=== PATIENT | male | born 1985 | race Caucasian/White ===

== ENCOUNTER 2020-09-21 18:46 | Inpatient (IN) | payer OTHER ==
[~2020-09-21] VITALS: Ht 170.2 cm; Wt 86.2 kg
[2020-09-21 19:47] LABS: BASOPHILS 0.3 % (0-2); EOSINOPHILS 0.2 % (0-7); HEMATOCRIT 44.1 % (42.0-54.0); HEMOGLOBIN 14.8 g/dL (13.5-17.5); LYMPHOCYTES 10.9 % (15-50); MCH 28.2 pg (26.0-34.0); MCHC 33.6 g/dL (31.0-37.0); MEAN PLATELET VOLUME 7.3 fL (7.4-10.4); MONOCYTES 8.6 % (2-11); PLATELET COUNT 349 10x3/uL (130-400); RBC 5.24 10x6/uL (4.20-6.10); RDW 12.8 % (11.5-14.5); WBC 11.3 10x3/uL (4.8-10.8)
[2020-09-21 19:49] LABS: BILIRUBIN NEGATIVE (NEGATIVE); KETONE LARGE mg/dL (NEGATIVE); NITRITE NEGATIVE (NEGATIVE); UROBILINOGEN NORMAL mg/dL (< 2)
[2020-09-21 19:56] LABS: CALC OSMOLALITY 275 mosm/kg (275-300); CALCIUM 8.8 mg/dL (8.5-10.1); CARBON DIOXIDE 28.3 mmol/L (21.0-32.0); CHLORIDE - SERUM 100 mmol/L (98-107); GLUCOSE 117 mg/dL (74-106); POTASSIUM - SERUM 3.8 mmol/L (3.5-5.1); SODIUM 137 mmol/L (136-145); UREA NITROGEN 15 mg/dL (7-18); eGFR NON AFRICAN AMERICAN > 90 mL/min (90-120)
[2020-09-21 20:02] LABS: ALBUMIN 3.5 g/dL (3.4-5.0); ALKALINE PHOSPHATASE 84 U/L (30-120); ALT (SGPT) 45 U/L (10-68); AMYLASE - SERUM 56 U/L (25-115); BILIRUBIN - TOTAL 0.69 mg/dL (0.2-1.3); LIPASE 75 U/L (73-393); PROTEIN - SERUM 8.1 g/dL (6.4-8.2)
--- NOTE | 2020-09-21 22:14 | NUR ---
BLOODD CULTURES DRAWN AND SENT TO LAB
[2020-09-22] VITALS (12 sets, daily range): BP systolic 131–161; BP diastolic 62–98; Ht 170.2 cm; Wt 86.2 kg
[2020-09-22 06:45] LABS: BASOPHILS 0.3 % (0-2); EOSINOPHILS 1.2 % (0-7); HEMATOCRIT 38.7 % (42.0-54.0); HEMOGLOBIN 13.2 g/dL (13.5-17.5); LYMPHOCYTES 14.7 % (15-50); MCH 28.6 pg (26.0-34.0); MCHC 34.2 g/dL (31.0-37.0); MCV 83.6 fL (80.0-100.0); MEAN PLATELET VOLUME 7.6 fL (7.4-10.4); MONOCYTES 12.1 % (2-11); NEUTROPHILS 71.7 % (40-80); RBC 4.62 10x6/uL (4.20-6.10); RDW 12.4 % (11.5-14.5); WBC 10.9 10x3/uL (4.8-10.8)
[2020-09-22 06:50] LABS: PLATELET COUNT 252 10x3/uL (130-400)
[2020-09-22 07:08] LABS: CALC OSMOLALITY 273 mosm/kg (275-300); CALCIUM 8.4 mg/dL (8.5-10.1); CARBON DIOXIDE 27.8 mmol/L (21.0-32.0); CHLORIDE - SERUM 102 mmol/L (98-107); CREATININE - SERUM 0.8 mg/dL (0.6-1.3); GLUCOSE 117 mg/dL (74-106); POTASSIUM - SERUM 3.6 mmol/L (3.5-5.1); SODIUM 136 mmol/L (136-145); UREA NITROGEN 14 mg/dL (7-18); eGFR NON AFRICAN AMERICAN > 90 mL/min (90-120)
[2020-09-22 07:29] LABS: CKMB 0.5 U/L (0.0-3.6); CREATINE KINASE 123 UL (21-232); TROPONIN-I < 0.017 ng/mL (0.000-0.060)
[2020-09-22 07:31] LABS: APTT 39.4 SECONDS (22.8-39.4); INR 1.3 (0.85-1.17)
--- NOTE | 2020-09-22 07:45 | NUR ---
AWAKE AND ALERT. ORIENTED 3. C/O INTENSE ABDOMINAL PAIN AT THIS TIME. WANTS DILAUDID. WILL TALK WITH MD. LUNGS ARE CLEAR BILATERALLY, NO COUGH NOTED. SKIN IS INTACT WITHOUT REDNESS. IV TO LEFT FOREARM IS PATENT WITHOUT REDNESS AT INSERTION SITE.
--- NOTE | 2020-09-22 08:33 | NUR ---
SPOKE WITH YONAS MORA APN RE PAIN MEDS. NEW ORDER RECEIVED. REQUESTED AND GIVEN 0.5 MG DILAUDID SLOW IVP FOR C/O ABDOMINAL BACK PAIN LEVEL 8. WILL MONITOR.
--- NOTE | 2020-09-22 10:02 | NUR ---
OFF UNIT VIA BED FOR PROCEDURE TO IR.
--- NOTE | 2020-09-22 10:55 | NUR ---
RETURNED FROM SURGERY. A/O X3. NO C/O AT THIS TIME. FOOD ORDERED BUT NOT REALLY HUNGRY. WILL MONITOR.
--- NOTE | 2020-09-22 11:30 | NUR ---
RESTING QUIETLY IN BED. VSS. DENIES NEEDS. NO C/O PAIN AT THIS TIME.
--- NOTE | 2020-09-22 16:36 | NUR ---
REQUESTED AND GIVNE 0.5 MG DILAUDID SLOW IVP FOR C/O ABDOMINAL PAIN. WILL MONITOR. REPORTS DIARRHEA X 2. WILL MONITOR. NO CHANGES NOTED.
--- NOTE | 2020-09-22 19:19 | NUR ---
PATIENT RESTING IN BED WITH EYES CLOSED AND NO S/S OF DISTRESS. BED IN LOWEST POSITION AND CALL LIGHT IN REACH.
--- NOTE | 2020-09-22 21:36 | NUR ---
ADMINISTERED MEDS PER ORDERS. PATIENT CLAUDY WELL. ENCOURAGED TO CALL WITH NEEDS.
[2020-09-23 00:08] VITALS: BP 130/66
[2020-09-23 04:37] VITALS: BP 122/65
[2020-09-23 07:12] LABS: ALKALINE PHOSPHATASE 61 U/L (30-120); BILIRUBIN - TOTAL 0.98 mg/dL (0.2-1.3); CALC OSMOLALITY 269 mosm/kg (275-300); CALCIUM 8.2 mg/dL (8.5-10.1); CARBON DIOXIDE 25.9 mmol/L (21.0-32.0); CHLORIDE - SERUM 102 mmol/L (98-107); CREATININE - SERUM 0.9 mg/dL (0.6-1.3); GLUCOSE 129 mg/dL (74-106); MAGNESIUM - SERUM 1.9 mg/dL (1.8-2.4); POTASSIUM - SERUM 3.2 mmol/L (3.5-5.1); PROTEIN - SERUM 6.5 g/dL (6.4-8.2); SODIUM 134 mmol/L (136-145); UREA NITROGEN 12 mg/dL (7-18); eGFR NON AFRICAN AMERICAN > 90 mL/min (90-120)
[2020-09-23 07:14] LABS: BASOPHILS 0.4 % (0-2); EOSINOPHILS 0.6 % (0-7); HEMATOCRIT 36.6 % (42.0-54.0); HEMOGLOBIN 12.6 g/dL (13.5-17.5); LYMPHOCYTES 13.9 % (15-50); MCH 28.5 pg (26.0-34.0); MCHC 34.4 g/dL (31.0-37.0); MEAN PLATELET VOLUME 7.9 fL (7.4-10.4); MONOCYTES 10.5 % (2-11); NEUTROPHILS 74.6 % (40-80); PLATELET COUNT 271 10x3/uL (130-400); RBC 4.41 10x6/uL (4.20-6.10); RDW 12.5 % (11.5-14.5); WBC 7.9 10x3/uL (4.8-10.8)
[2020-09-23 07:15] LABS: ALBUMIN 2.6 g/dL (3.4-5.0); ALT (SGPT) 30 U/L (10-68)
--- NOTE | 2020-09-23 08:13 | NUR ---
AWAKE AND ALERT. ORIENTED X3. NO C/O AT THIS TIME. LUNGS ARE CLEAR BILATERALLY, NO COUGH NOTED. SKIN IS INTACT WITHOUT REDNESS EXCEPT WHERE DRAIN WAS INSERTED TO LEFT SIDE, WHICH HAS DARK BROWN MODEST DRAINAGE. IV TO LEFT FOREARM IS PATENT WITHOUT REDNESS AT INSERTION SITE. UP TO BR PER SELF. NO BM AT THIS TIME. DENIES NEEDS.
[2020-09-23 09:11] VITALS: BP 116/57
--- NOTE | 2020-09-23 09:30 | NUR ---
ATE A FEW BITES OF BREAKFAST WITHOUT NAUSEA OR INCREASED PAIN. TOOK AM MEDS WITHOUT DIFFICULTY. DENIES NEEDS.
--- NOTE | 2020-09-23 10:15 | NUR ---
REQUESTED AND GIVEN 2 HYDROCODONE PO FOR C/O ABDOMINAL PAIN LEVEL 7. WILL MONITOR.
--- NOTE | 2020-09-23 12:30 | NUR ---
ATE ALL OF LUNCH WITHOUT C/O PAIN OR DISCOMFORT. DENIES NEEDS.
--- NOTE | 2020-09-23 16:15 | NUR ---
REQUESTED AND GIVNE 2 HYDROCODONE PO FOR C/O ABDOMINAL PAIN LEVEL 8. WILL MONITOR. NO FURTHER DIARRHEA AT THIS TIME.
[2020-09-23 16:32] VITALS: BP 135/70
--- NOTE | 2020-09-23 18:22 | NUR ---
ATE ALL OF SUPPER WITHOUT C/O DISCOMFORT. NO CHANGES NOTED. DENIES NEEDS.
--- NOTE | 2020-09-23 19:45 | NUR ---
PATIENT RESTING IN BED WITH NO S/S OF DISTRESS AND DENIES NEEDS AT THIS TIME. BED IN LOWEST POSITION AND CALL LIGHT IN REACH. ENCOURAGED PATIENT TO CALL WITH NEEDS.
--- NOTE | 2020-09-23 21:28 | NUR ---
ADMINISTERED MEDS PER ORDERS. PATIENT CLAUDY WELL. ENCOURAGED TO CALL WITH NEEDS.
[2020-09-23 22:06] VITALS: BP 124/52
[2020-09-24 06:47] LABS: BASOPHILS 0.3 % (0-2); HEMATOCRIT 37.3 % (42.0-54.0); HEMOGLOBIN 12.7 g/dL (13.5-17.5); LYMPHOCYTES 16.8 % (15-50); MCH 28.3 pg (26.0-34.0); MCHC 34.1 g/dL (31.0-37.0); MCV 82.9 fL (80.0-100.0); MONOCYTES 9.8 % (2-11); NEUTROPHILS 71.1 % (40-80); PLATELET COUNT 272 10x3/uL (130-400); RBC 4.49 10x6/uL (4.20-6.10); RDW 12.3 % (11.5-14.5); WBC 6.5 10x3/uL (4.8-10.8)
[2020-09-24 07:06] LABS: ALBUMIN 2.6 g/dL (3.4-5.0); ALKALINE PHOSPHATASE 57 U/L (30-120); ALT (SGPT) 29 U/L (10-68); BILIRUBIN - TOTAL 0.36 mg/dL (0.2-1.3); CALC OSMOLALITY 270 mosm/kg (275-300); CHLORIDE - SERUM 103 mmol/L (98-107); CREATININE - SERUM 0.8 mg/dL (0.6-1.3); GLUCOSE 102 mg/dL (74-106); MAGNESIUM - SERUM 1.8 mg/dL (1.8-2.4); SODIUM 136 mmol/L (136-145); UREA NITROGEN 10 mg/dL (7-18); eGFR NON AFRICAN AMERICAN > 90 mL/min (90-120)
[2020-09-24 07:11] LABS: POTASSIUM - SERUM 4.3 mmol/L (3.5-5.1)
--- NOTE | 2020-09-24 07:30 | NUR ---
PT AWAKE AND ALERT. NO NEEDS AT THIS TIME. CL IN REACH. WCTM
[2020-09-24 07:56] VITALS: BP 150/84
[2020-09-24 08:10] VITALS: BP 128/90
--- NOTE | 2020-09-24 11:10 | NUR ---
PT WANTING AND LOOKING FORWARD TO DISCHARGE TODAY. WAITING ON PRIMARY TO COME BY. CL IN REACH. NO NEEDS AT THIS TIME. WCTM
[2020-09-24] MEDS ORDERED: LISINOPRIL10 MG PO (11:35)
[2020-09-24] MEDS ORDERED: ACETAMINOPHEN325 MG PO (11:35)
[2020-09-24] MEDS ORDERED: ZOFRAN ODT4 MG/UDTAB PO (11:36)
[2020-09-24] MEDS ORDERED: LEVAQUIN750 MG PO (11:36)
[2020-09-24] MEDS ORDERED: FLORAJEN DIGES1 EACH PO (11:36)
[2020-09-24] MEDS ORDERED: PROTONIX40 MG PO (11:36)
[2020-09-24] MEDS ORDERED: FLAGYL500 MG PO (11:36)
[2020-09-24] MEDS ORDERED: HYDROCODON-ACE1 EAC7 PO (11:37)
[2020-09-24 12:11] VITALS: BP 133/82
--- NOTE | 2020-09-24 12:22 | MORECARE ---
CASE MANAGEMENT DISCHARGE SUMMARY PATIENT: ISIS DEVLIN UNIT: [id number] ADM DATE: 09/21/20 AGE: 35 : 87 SEX: M ROOM/BED: D.2227 AUTHOR: MASOOD,DOC PHYSICIAN: REFERRING PHYSICIAN: ROMEL WILLAMS DO DATE OF SERVICE: 09/24/20 Case Management Discharge Planning Summary COMMENTS ENTERED DATE: 09/24/20 12:18 CT COMMENT TYPE: Discharge Planning REVIEWER: Maye Rios CM met with patient at bedside after obtaining verbal consent. CM discussed availability / needs of home health, REHAB and medical equipment. Patient will need home health for drain care. [facility]. [facility] to [facility]. CM to follow and assist as needed. Patient does not have a pcp and will use [facility] pharmacy. Anne-Marie Bond at [phone] as emergency contact. Patient to dc to home today. DCP REVIEW SUMMARY ANTICIPATED D/C DATE: EXPECTED LOS : CASE STATUS: DCP Initiated INITIAL REVIEW: 09/21/2020 INITIAL REVIEWER: Maye Rios FINAL DISCHARGE DISPOSITION: : FINAL REVIEWER: FINAL REVIEW DATE: DCP Focus Questions & Answers DCP Screen QUESTION: ANSWER High Risk Factors: : None Walking limitation: Patient stated self rated walking limitation present? : No Age: : 18 - 44 Prior living environment: : Lives Alone Disability ranking: : Grade 1: No significant disability DCP Evaluation QUESTION: ANSWER Patient's ability to cope with chronic illness : d. No chronic illness Would patient like to participate in any Care Coordination programs (if applicable): : Not applicable Mental health screen: : No mental health history DCP Re-evaluation QUESTION: ANSWER Would patient like to participate in any Care Coordination programs (if applicable): : Not applicable PATIENT: ISIS DEVLIN ENCOUNTER: [id number] MEDICAL RECORD#: [id number] ADMISSION DATE: 09/21/2020 DISCHARGE DATE: ATTENDING MD: ROMEL LONDONO : AGE: 35 MARITAL STATUS: S DC PLAN ID: [id number] FACILITY: [facility] PRINTED ON: 09/24/20 12:22 CT All edits/amendments must be made on the electronic document DICTATION DATE: 09/24/20 1222 CAMP BOSS: HEMAL 09/24/20 1222 RPT#: [id number] DC DATE: STATUS: ADM IN [facility] [address] [place] [address] END OF REPORT
--- NOTE | 2020-09-24 12:36 | NUR ---
PT PROVIDED WITH FLUSHES, ALCOHOL CAPS AND PADS. WELL A CUP TO VERIFY EMPTYING AMOUNTS. CL IN REACH. BERTA FERNANDEZ WITH IR IN ROOM. SARIKA
--- NOTE | 2020-09-24 13:41 | NUR ---
IV THERAPY REMOVED FROM LEFT FOREARM WITH TIP INTACT. DISCHARGE INSTRUCTIONS GIVEN. PT VERBALIZED UNDERSTANDING. REFUSED WHEELCHAIR.
--- NOTE | 2020-09-24 13:54 | MORECARE ---
CASE MANAGEMENT DISCHARGE SUMMARY PATIENT: ISIS DEVLIN UNIT: [id number] ADM DATE: 09/21/20 AGE: 35 : 87 SEX: M ROOM/BED: D.2227 AUTHOR: MASOOD,DOC PHYSICIAN: REFERRING PHYSICIAN: ROMEL WILLAMS DO DATE OF SERVICE: 09/24/20 Case Management Discharge Planning Summary COMMENTS ENTERED DATE: 09/24/20 12:18 CT COMMENT TYPE: Discharge Planning REVIEWER: Maye Rios CM met with patient at bedside after obtaining verbal consent. CM discussed availability / needs of home health, REHAB and medical equipment. Patient will need home health for drain care. CAROLE signed [facility]. Referral faxed to [facility]. CM to follow and assist as needed. Patient does not have a pcp and will use [facility] pharmacy. Anne-Marie Bond at [phone] as emergency contact. Patient to dc to home today. DCP REVIEW SUMMARY ANTICIPATED D/C DATE: EXPECTED LOS : CASE STATUS: DCP Initiated INITIAL REVIEW: 09/21/2020 INITIAL REVIEWER: Maye Rios FINAL DISCHARGE DISPOSITION: : FINAL REVIEWER: FINAL REVIEW DATE: DCP Focus Questions & Answers DCP Screen QUESTION: ANSWER High Risk Factors: : None Walking limitation: Patient stated self rated walking limitation present? : No Age: : 18 - 44 Prior living environment: : Lives Alone Disability ranking: : Grade 1: No significant disability DCP Evaluation QUESTION: ANSWER Patient's ability to cope with chronic illness : d. No chronic illness Would patient like to participate in any Care Coordination programs (if applicable): : Not applicable Mental health screen: : No mental health history DCP Re-evaluation QUESTION: ANSWER Would patient like to participate in any Care Coordination programs (if applicable): : Not applicable PATIENT: ISIS DEVLIN ENCOUNTER: [id number] MEDICAL RECORD#: [id number] ADMISSION DATE: 09/21/2020 DISCHARGE DATE: 09/24/2020 ATTENDING MD: ROMEL LONDONO : AGE: 35 MARITAL STATUS: S DC PLAN ID: [id number] FACILITY: [facility] PRINTED ON: 09/24/20 13:54 CT All edits/amendments must be made on the electronic document DICTATION DATE: 09/24/20 9134 ELECTRICAL LABORATORY TECHNICIAN: HEMAL 09/24/20 1354 RPT#: [id number] DC DATE:09/24/20 STATUS: DIS IN [facility] [address] [place] [address] END OF REPORT
--- NOTE | 2020-09-25 14:14 | MORECARE ---
CASE MANAGEMENT DISCHARGE SUMMARY PATIENT: ISIS DEVLIN UNIT: [id number] ADM DATE: 09/21/20 AGE: 35 : 87 SEX: M ROOM/BED: D.2227 AUTHOR: MASOOD,DOC PHYSICIAN: REFERRING PHYSICIAN: ROMEL WILLAMS DO DATE OF SERVICE: 09/25/20 Case Management Discharge Planning Summary COMMENTS ENTERED DATE: 09/24/20 12:18 CT COMMENT TYPE: Discharge Planning REVIEWER: Maye Rios CM met with patient at bedside after obtaining verbal consent. CM discussed availability / needs of home health, REHAB and medical equipment. Patient will need home health for drain care. [facility] signed [facility]. Referral [facility] to [facility]. CM to follow and assist as needed. Patient does not have a pcp and will use [facility] pharmacy. Anne-Marie Bond at [phone] as emergency contact. Patient to dc to home today. DCP REVIEW SUMMARY ANTICIPATED D/C DATE: EXPECTED LOS : CASE STATUS: DCP Initiated INITIAL REVIEW: 09/21/2020 INITIAL REVIEWER: Maye Rios FINAL DISCHARGE DISPOSITION: : FINAL REVIEWER: FINAL REVIEW DATE: DCP Focus Questions & Answers DCP Screen QUESTION: ANSWER High Risk Factors: : None Walking limitation: Patient stated self rated walking limitation present? : No Age: : 18 - 44 Prior living environment: : Lives Alone Disability ranking: : Grade 1: No significant disability DCP Evaluation QUESTION: ANSWER Patient's ability to cope with chronic illness : d. No chronic illness Would patient like to participate in any Care Coordination programs (if applicable): : Not applicable Mental health screen: : No mental health history DCP Re-evaluation QUESTION: ANSWER Would patient like to participate in any Care Coordination programs (if applicable): : Not applicable PATIENT: ISIS DEVLIN ENCOUNTER: [id number] MEDICAL RECORD#: [id number] ADMISSION DATE: 09/21/2020 DISCHARGE DATE: 09/24/2020 ATTENDING MD: ROMEL LONDONO : AGE: 35 MARITAL STATUS: S DC PLAN ID: [id number] FACILITY: [facility] PRINTED ON: 09/25/20 14:14 CT All edits/amendments must be made on the electronic document DICTATION DATE: 09/25/20 4634 BROMINATION EQUIPMENT OPERATOR: HEMAL 09/25/20 1414 RPT#: [id number] DC DATE:09/24/20 STATUS: DIS IN [facility] [address] [place] [address] END OF REPORT
--- NOTE | 2020-09-25 18:51 | MORECARE ---
CASE MANAGEMENT DISCHARGE SUMMARY PATIENT: ISIS DEVLIN UNIT: [id number] ADM DATE: 09/21/20 AGE: 35 : 87 SEX: M ROOM/BED: D.2227 AUTHOR: MASOOD,DOC PHYSICIAN: REFERRING PHYSICIAN: ROMEL WILLAMS DO DATE OF SERVICE: 09/25/20 Case Management Discharge Planning Summary COMMENTS ENTERED DATE: 09/24/20 12:18 CT COMMENT TYPE: Discharge Planning REVIEWER: Maye Rios CM met with patient at bedside after obtaining verbal consent. CM discussed availability / needs of home health, REHAB and medical equipment. Patient will need home health for drain care. CARO[facility] signed [facility]. Referral [facility] to [facility]. CM to follow and assist as needed. Patient does not have a pcp and will use [facility] pharmacy. Anne-Marie Bond at [phone] as emergency contact. Patient to dc to home today. DCP REVIEW SUMMARY ANTICIPATED D/C DATE: EXPECTED LOS : CASE STATUS: DCP Complete INITIAL REVIEW: 09/21/2020 INITIAL REVIEWER: Maye Rios FINAL DISCHARGE DISPOSITION: : FINAL REVIEWER: FINAL REVIEW DATE: DCP Focus Questions & Answers DCP Screen QUESTION: ANSWER High Risk Factors: : None Walking limitation: Patient stated self rated walking limitation present? : No Age: : 18 - 44 Prior living environment: : Lives Alone Disability ranking: : Grade 1: No significant disability DCP Evaluation QUESTION: ANSWER Patient's ability to cope with chronic illness : d. No chronic illness Would patient like to participate in any Care Coordination programs (if applicable): : Not applicable Mental health screen: : No mental health history DCP Re-evaluation QUESTION: ANSWER Would patient like to participate in any Care Coordination programs (if applicable): : Not applicable PATIENT: ISIS DEVLIN ENCOUNTER: [id number] MEDICAL RECORD#: [id number] ADMISSION DATE: 09/21/2020 DISCHARGE DATE: 09/24/2020 ATTENDING MD: ROMEL LONDONO : AGE: 35 MARITAL STATUS: S DC PLAN ID: [id number] FACILITY: [facility] PRINTED ON: 09/25/20 18:51 CT All edits/amendments must be made on the electronic document DICTATION DATE: 06/08/21 1851 LOCK PLATER: HEMAL 09/25/201850 RPT#: [id number] DC DATE:09/24/20 STATUS: DIS IN [place] [address] [place] [address] END OF REPORT
--- NOTE | 2020-09-27 13:00 | MORECARE ---
CASE MANAGEMENT DISCHARGE SUMMARY PATIENT: ISIS DEVLIN UNIT: [id number] ADM DATE: 09/21/20 AGE: 35 : 87 SEX: M ROOM/BED: D.2227 AUTHOR: MASOOD,DOC PHYSICIAN: REFERRING PHYSICIAN: ROMEL WILLAMS DO DATE OF SERVICE: 09/27/20 Case Management Discharge Planning Summary COMMENTS ENTERED DATE: 09/24/20 12:18 CT COMMENT TYPE: Discharge Planning REVIEWER: Maye Rios CM met with patient at bedside after obtaining verbal consent. CM discussed availability / needs of home health, REHAB and medical equipment. Patient will need home health for drain care. CAROLE signed [facility]. Referral [facility] to [facility]. CM to follow and assist as needed. Patient does not have a pcp and will use [facility] pharmacy. Anne-Marie Bond at [phone] as emergency contact. Patient to dc to home today. DCP REVIEW SUMMARY ANTICIPATED D/C DATE: EXPECTED LOS : CASE STATUS: DCP Complete INITIAL REVIEW: 09/21/2020 INITIAL REVIEWER: Maye Rios FINAL DISCHARGE DISPOSITION: : FINAL REVIEWER: FINAL REVIEW DATE: DCP Focus Questions & Answers DCP Screen QUESTION: ANSWER High Risk Factors: : None Walking limitation: Patient stated self rated walking limitation present? : No Age: : 18 - 44 Prior living environment: : Lives Alone Disability ranking: : Grade 1: No significant disability DCP Evaluation QUESTION: ANSWER Patient's ability to cope with chronic illness : d. No chronic illness Would patient like to participate in any Care Coordination programs (if applicable): : Not applicable Mental health screen: : No mental health history DCP Re-evaluation QUESTION: ANSWER Would patient like to participate in any Care Coordination programs (if applicable): : Not applicable PATIENT: ISIS DEVLIN ENCOUNTER: [id number] MEDICAL RECORD#: [id number] ADMISSION DATE: 09/21/2020 DISCHARGE DATE: 09/24/2020 ATTENDING MD: ROMEL LONDONO : AGE: 35 MARITAL STATUS: S DC PLAN ID: [id number] FACILITY: [facility] PRINTED ON: 09/27/20 13:00 CT All edits/amendments must be made on the electronic document DICTATION DATE: 09/27/20 1300 ALARM SERVICE TECHNICIAN: HEMAL 09/27/20 1300 RPT#: [id number] DC DATE:09/24/20 STATUS: DIS IN [facility] [address] [place] [address] END OF REPORT
== END 2020-09-24 13:42 | disposition home health service (06) | DRG 392 ==
LOC: D.ER 18:46 → D.MS 21:21 → D.EDHOLD 21:21 → D.MS 21:49
PROVIDERS: Family Medicine; Radiology Diagnostic Radiology; ADMIT Family Medicine; ATTEND Family Medicine
PROC: 0D9N30Z Drainage of Sigmoid Colon with Drainage Device, Percutaneous Approach (ICD-10-PCS; principal; 2020-09-22 10:00)
DX: K57.20 Diverticulitis of large intestine with perforation and abscess without bleeding (principal); F17.203 Nicotine dependence unspecified, with withdrawal; D72.829 Elevated white blood cell count, unspecified; I10 Essential (primary) hypertension; F12.90 Cannabis use, unspecified, uncomplicated; Z86.19 Personal history of other infectious and parasitic diseases

== ENCOUNTER 2020-09-26 13:54 | Emergency (ER) | payer OTHER ==
[~2020-09-26] VITALS: Ht 170.2 cm; Wt 86.4 kg
[~2020-09-26 13:54] MED LIST: ACETAMINOPHEN325 MG PO; FLAGYL500 MG PO; FLORAJEN DIGES1 EACH PO; HYDROCODON-ACE1 EAC7 PO; LEVAQUIN750 MG PO; LISINOPRIL10 MG PO; PROTONIX40 MG PO; ZOFRAN ODT4 MG/UDTAB PO
[2020-09-26 13:58] VITALS: BP 130/83; Ht 170.2 cm; Wt 86.4 kg
== END 2020-09-26 18:10 | disposition left against medical advice (07) ==
LOC: D.ER 13:54
DX: Z71.1 Person with feared health complaint in whom no diagnosis is made (principal)

== ENCOUNTER 2020-10-01 07:00 | Day surgery (SDC) | payer OTHER ==
--- NOTE | 2020-09-29 09:37 | NUR ---
LATE ENTRY 09/28/20 @ 9472 SPOKE WITH PT REGARDING THURSDAY PROCEDURE NPO: VERBALIZED UNDERSTANDING ARRIVAL: 729 ECOLOGIST: PT DOES NOT HAVE ECOLOGIST HOME - WILL SPEAK TO DIRECTOR AND SEE IF WE CAN GET TRANSPORTATION HOME
[~2020-10-01] VITALS: Ht 170.2 cm; Wt 86.4 kg
--- NOTE | ~2020-10-01 | HEMODYNAMI ---
PATIENT:ISIS DEVLIN MEDICAL RECORD: [id number] : 89 LOCATION:[facility] ADMISSION DATE: 10/01/20 Generatedon:110:31 Patient name: ISIS DEVLIN Patient #: [id number] SSN: : 1985 Date of study: 10/01/2020 Page: Of Hemodynamic Procedure Report Patient Data Patient Demographics Procedure consent was obtained First Name: ISIS Gender: Male Last Name: CLAUS : 1985 [facility] Initial: B Age: 35 year(s) Patient #: [id number] Race: Unknown Additional ID: [id number] Contact details Address: [address] [place] [address] [address] State: [place] City: [place] Zip code: [address] Past Medical History Allergies: No known allergies Admission Admission Data Admission Date: 10/01/2020 Admission Time: 7:00 Height (in.): 67 BSA: 1.98 (m2) Height (cm.): 170.18 BMI: 29.76 (kg/m2) Weight (lbs.): 190 Weight (kg.): 86.18 Procedure Procedure Types Cath Procedure Peripheral Cath Diagnostic Procedure Abscess Abscessogram Procedure Description Procedure Date Procedure Date: 10/01/2020 Procedure Start Time: 10:25 Procedure Staff Name Function Nicholas Curiel MD Performing Physician Caitlin Smith RT Package Dyer Apryl Rivas RN Nurse JEFERSON RAMOS RT Scrub Procedure Data Cath Procedure Fluoroscopy Diagnostic fluoroscopy Total fluoroscopy Time: 0.2 time: 0.2 min min Diagnostic fluoroscopy Total fluoroscopy dose: 3 dose: 3 mGy mGy Contrast Material Contrast Material Type Amount (ml) Isovue 300 5 Procedure Medications Medication Administration Route Dosage Heparin Flush Bag added to field 1 bags (1000units/500ml NS) Hemodynamics Rest BSA: 1.98 (m2) O2 Consumption: Estimated: 269.28 (ml/min) O2 Consumption indexed : Estimated:136 (ml/min/m) Pre Cath Intra NCS Post Cath Medications Time Medication Route Dose Verified Delivered Reason Notes Effec tiveness by by 10:18:49 Heparin Flush added 1 Nicholas Peterson used for Bag to bags Moisés Curiel procedure (1000units/500ml field MD MD FAUSTIN) Procedure Log Time Note 10:10:10 Patient Height : 67 inches 10:10:12 Patient Weight : 190 lbs 10:10:41 Time tracking: Regular hours (M-F 7:00 - 5:00) 10:10:55 Patient received from Outpatients to IR Alert and oriented. Tansferred to table in Supine position. 10:10:58 Signed procedure consent form obtained from patient. 10:11:10 H&P Date Dictated: 10/01/2020 Within 30 days and on chart., H&P Addendum completed by physician on day of procedure. (MUST COMPLETE FOR ALL OUTPATIENTS). 10:11:12 Pre-procedure instructions explained to patient. 10:11:12 Pre-op teaching completed and patient verbalized understanding. 10:11:19 Family unavailable. 10:11:21 Patient NPO since Midnight. 10:11:31 Patient allergic to No known allergies 10:11:35 Is the patient allergic to Iodine/contrast media? No. 10:11:39 - 10:11:56 no sedation given 10:18:49 Heparin Flush Bag (1000units/500ml NS) 1 bags added to field was administered by Nicholas Curiel MD; used for procedure; Verbal order read back and verified. 10:23:55 Use device set IR Diagnostic 10:23:57 Tegaderm 4 x 4 ([id number]) opened to sterile field. 10:23:58 Sterile Angiographic Pack opened to sterile field. 10:23:59 Bag Decanter () opened to sterile field. 10:24:08 - 10:24:12 Physician arrived 10:24:13 --------ALL STOP TIME OUT------ 10:24:14 Final Timeout: patient, procedure, and site verified with staff and physician. All members of the team are in agreement. 10:25:29 Fire Safety Assessment: A--An alcohol-based skin anteseptic being used preoperatively., C--Open oxygen or nitrous oxide is being used. 10::36 Procedure started. 10::36 Full Disclosure recording started 10:29:45 5cc's isovue 300 injected into drain, showed abscess resolved and removed drain 10:29:55 Procedure ended.(Physican Out) 10:30:21 Fluoroscopy time 00.20 minutes. 10:30:25 Fluoroscopy dose: 3 mGy 10:30:25 Flurop Dose total: 3 10:30:29 Contrast amount:Isovue 300 5ml. 10:30:31 Procedure and supply charges have been captured, reviewed, submitted an d are correct. 10:31:14 Report given to Outpatients. Device Usage Item Name Manufacture Quantity Catalog Hospital Part Current Minimal Lot# / Number Charge Number Stock Stock Serial# Code Tegaderm 4 x 3M 1 [id number] 4 ([id number]) Sterile Cardinal 1 [id number] Angiographic Health Pack Bag Decanter Microtek 1 [id number] () [employer] Signature Audit [place] Stage Time Signature Unsigned Intra-Procedure 10/01/2020 Caitlin Smith 10:31:30 AM RT(R) [facility] [address] [place] [address]
[2020-10-01 07:23] LABS: BASOPHILS 1.3 % (0-2); EOSINOPHILS 5.9 % (0-7); HEMOGLOBIN 14.7 g/dL (13.5-17.5); LYMPHOCYTES 33.9 % (15-50); MCH 28.8 pg (26.0-34.0); MCHC 34.1 g/dL (31.0-37.0); MCV 84.5 fL (80.0-100.0); MEAN PLATELET VOLUME 6.9 fL (7.4-10.4); MONOCYTES 9.4 % (2-11); NEUTROPHILS 49.5 % (40-80); RBC 5.08 10x6/uL (4.20-6.10); RDW 12.7 % (11.5-14.5); WBC 5.5 10x3/uL (4.8-10.8)
[2020-10-01 07:26] LABS: PLATELET COUNT 468 10x3/uL (130-400)
[2020-10-01 07:28] LABS: CALC OSMOLALITY 280 mosm/kg (275-300); CALCIUM 8.6 mg/dL (8.5-10.1); CARBON DIOXIDE 30.7 mmol/L (21.0-32.0); CHLORIDE - SERUM 102 mmol/L (98-107); CREATININE - SERUM 1.1 mg/dL (0.6-1.3); GLUCOSE 118 mg/dL (74-106); POTASSIUM - SERUM 4.1 mmol/L (3.5-5.1); SODIUM 138 mmol/L (136-145); UREA NITROGEN 25 mg/dL (7-18); eGFR NON AFRICAN AMERICAN 82 mL/min (90-120)
[2020-10-01 07:53] LABS: INR 1.06 (0.85-1.17); PROTIME 12.8 SECONDS (11.6-15.0)
[2020-10-01 07:54] LABS: APTT 33.6 SECONDS (22.8-39.4)
[2020-10-01 08:52] VITALS: BP 136/74; Ht 170.2 cm; Wt 86.4 kg
--- NOTE | 2020-10-01 11:47 | NUR ---
1130 IV D/C'D WITH TIP INTACT. DISCHARGE INSTRUCTIONS GONE OVER WITH PATIENT. HE VOICED UNDERSTANDING.
--- NOTE | 2020-10-01 13:14 | NUR ---
1225 - PATIENT DISCHARGED TO HIS HOME VIA CAB (VOUCHER).
== END 2020-10-01 12:25 | disposition home or self-care (01) ==
LOC: D.SP 07:00 → EDSTATUS 09:00 → D.CT 09:00 → D.SP 12:25
PROVIDERS: Specialist; ATTEND Radiology Diagnostic Radiology
DX: K57.90 Diverticulosis of intestine, part unspecified, without perforation or abscess without bleeding (principal)